=== PATIENT | male | born 2000 | race Caucasian/White ===

== ENCOUNTER 2024-09-12 12:46 | Emergency (ER) | payer BC ==
[~2024-09-12] VITALS: Ht 165.1 cm; Wt 61.4 kg
[2024-09-12 13:18] VITALS: BP 120/75; TEMP 97.8
[2024-09-12] MEDS ORDERED: MUCINEX 60600 MG/TA1 PO (14:33)
[2024-09-12] MEDS ORDERED: TESSALON P100 MG/CAP PO (14:33)
[2024-09-12] MEDS ORDERED: AMOXICILLIN 50500 MG PO (15:27)
[2024-09-12] MEDS ORDERED: ZITHROMAX Z PA250 MG PO (15:27)
[2024-09-12 16:07] VITALS: PULSE 75
== END 2024-09-12 16:08 | disposition home or self-care (01) ==
LOC: COL.ER 12:46
DX: J18.9 Pneumonia, unspecified organism (principal)